=== PATIENT | female | born 1970 | race Two or more races ===

== ENCOUNTER 2019-10-19 13:45 | Outpatient (CLI) | payer BC, SELFPAY ==
[2019-10-22 19:54] LABS: FSH 9.4 mIU/mL (***)
== END 2019-10-19 13:46 | disposition home or self-care (01) ==
PROVIDERS: PCP Family Medicine; Visit Provider Obstetrics & Gynecology
DX: N95.1 Menopausal and female climacteric states (principal)
CPT/HCPCS: 36415; 83001

== ENCOUNTER 2020-10-04 08:20 | Outpatient (CLI) | payer BC, SELFPAY ==
[2020-10-04 08:34] LABS: Basophils Percent Auto 0.3 % (0.2-1.2); Eosinophils Absolute Auto 0.2 K/mm3 (0-0.3); Eosinophils Percent Auto 3.5 % (0-4.4); Hematocrit 40.1 % (37.0-47.0); Hemoglobin 13.7 g/dL (12.0-15.0); Immature Granulocyte Absolute 0.02 K/mm3 (0.00-0.031); Immature Granulocyte Percent A 0.3 % (0-0.5); Lymphocytes Absolute Auto 1.63 K/mm3 (0.9-3.2); Lymphocytes Percent Auto 24.1 % (18.3-44.2); Mean Corpuscular HGB Conc 34.2 g/dl (32-36); Mean Corpuscular Hemoglobin 31.1 pg (26-34); Mean Corpuscular Volume 91.1 fl (80-100); Mean Platelet Volume 11.6 fl (7.4-10.4); Monocytes Absolute Auto 0.2 K/mm3 (0.1-0.6); Monocytes Percent Auto 3.2 % (2.6-8.5); Neutrophils Absolute Auto 4.6 K/mm3 (1.3-6.7); Neutrophils Percent Auto 68.6 % (45.5-73.1); Platelet Count Result 178 k/mm3 (150-375); Red Cell Distribution Width 12.8 % (11.5-14.5); White Blood Count 6.8 K/mm3 (4.5-10.0)
[2020-10-04 08:47] LABS: Alanine Aminotransferase 16 U/L (4-35); Alkaline Phosphatase 63 U/L (38-126); Anion Gap 7 mmol/L (8-16); Aspartate Amino Transferase 22 U/L (14-36); Bilirubin,Total 0.4 mg/dL (0.2-1.3); Blood Urea Nitrogen 12 mg/dL (7-17); Calcium 8.8 mg/dL (8.4-10.2); Carbon Dioxide 22 mmol/L (22-30); Chloride 108 mmol/L (98-107); Cholesterol 185 mg/dL (0-200); Estimated Glomerular Filt Rate > 60; Glucose 96 mg/dL (65-105); HDL Direct 70 mg/dL; Potassium 3.8 mmol/L (3.4-5.0); Sodium 137 mmol/L (137-145); Triglycerides 120 mg/dL (<150)
[2020-10-04 08:56] LABS: LDL Cholesterol Direct 76 mg/dL
[2020-10-04 09:48] LABS: Uric Acid 5.3 mg/dL (2.5-7.5)
[2020-10-06 21:44] LABS: Vitamin D 1,25 (OH)2 Total 45 pg/mL (18-72); Vitamin D2 1,25 (OH)2 <8 pg/mL; Vitamin D3 1,25 (OH)2 45 pg/mL
== END 2020-10-04 08:21 | disposition home or self-care (01) ==
PROVIDERS: PCP Family Medicine; Visit Provider Family Medicine
DX: Z13.220 Encounter for screening for lipoid disorders (principal); R53.82 Chronic fatigue, unspecified; I10 Essential (primary) hypertension; M46.1 Sacroiliitis, not elsewhere classified; E55.9 Vitamin D deficiency, unspecified; M12.9 Arthropathy, unspecified
CPT/HCPCS: 36415; 80053; 80061; 82652; 84443; 84550; 85025

== ENCOUNTER 2021-04-06 08:45 | Outpatient (CLI) | payer OTHER, SELFPAY ==
[2021-04-06 09:10] LABS: Basophils Percent Auto 0.4 % (0.2-1.2); Eosinophils Absolute Auto 0.2 K/mm3 (0-0.3); Eosinophils Percent Auto 3.1 % (0-4.4); Hematocrit 40.4 % (37.0-47.0); Hemoglobin 13.5 g/dL (12.0-15.0); Immature Granulocyte Absolute 0.01 K/mm3 (0.00-0.031); Immature Granulocyte Percent A 0.2 % (0-0.5); Lymphocytes Absolute Auto 1.49 K/mm3 (0.9-3.2); Lymphocytes Percent Auto 28.7 % (18.3-44.2); Mean Corpuscular HGB Conc 33.4 g/dl (32-36); Mean Corpuscular Hemoglobin 30.9 pg (26-34); Mean Corpuscular Volume 92.4 fl (80-100); Monocytes Absolute Auto 0.1 K/mm3 (0.1-0.6); Monocytes Percent Auto 2.7 % (2.6-8.5); Neutrophils Absolute Auto 3.4 K/mm3 (1.3-6.7); Neutrophils Percent Auto 64.9 % (45.5-73.1); Platelet Count Result 187 k/mm3 (150-375); Red Blood Count 4.37 M/mm3 (4.2-5.4); Red Cell Distribution Width 12.7 % (11.5-14.5); White Blood Count 5.2 K/mm3 (4.5-10.0)
[2021-04-06 09:20] LABS: Alanine Aminotransferase 18 U/L (4-35); Albumin Level 4.2 g/dL (3.5-5.1); Alkaline Phosphatase 65 U/L (38-126); Anion Gap 6 mmol/L (8-16); Aspartate Amino Transferase 25 U/L (14-36); Bilirubin,Total 0.6 mg/dL (0.2-1.3); Blood Urea Nitrogen 11 mg/dL (7-17); Carbon Dioxide 24 mmol/L (22-30); Chloride 108 mmol/L (98-107); Estimated Glomerular Filt Rate > 60; Glucose 95 mg/dL (65-110); Potassium 4.1 mmol/L (3.4-5.0); Sodium 138 mmol/L (137-145)
== END 2021-04-06 08:46 | disposition home or self-care (01) ==
LOC: ANHLAB 08:48
PROVIDERS: PCP Family Medicine; Visit Provider Family Medicine
DX: L50.9 Urticaria, unspecified (principal); R53.82 Chronic fatigue, unspecified
CPT/HCPCS: 36415; 80053; 82607; 85025

== ENCOUNTER 2022-01-27 01:48 | Emergency (ER) | payer OTHER, SELFPAY ==
--- NOTE | ~2022-01-27 | XR_ITS ---
EXAMINATION: XR chest 2V 01/27/2022 02:20 INDICATION: Chest pain PROCEDURE: Two-view chest COMPARISON: 03/18/2018 FINDINGS: The lungs are clear. The cardiomediastinal silhouette is within normal limits. There are no pleural effusions. There is no pneumothorax suspected. IMPRESSION: 1: NO ACUTE CARDIOPULMONARY DISEASE. Reviewed, dictated and finalized at location A.
--- NOTE | 2022-01-27 01:52 | ECG_ITS ---
Measurements Intervals [place] Rate: 75 P: 35 CO: 146 QRS: 50 QRSD: 81 T: 41 QT: 353 QTc: 395 Interpretive Statements SINUS RHYTHM POOR R-WAVE PROGRESSION ABNORMAL ECG NO PREVIOUS ECG AVAILABLE FOR COMPARISON Electronically Signed On 01-27-2022 13:45:37 CDT by Geraldo Adams M.D.
[2022-01-27 01:55] VITALS: BP 144/87; PULSE 77; RESP 16; TEMP 36.8; O2SAT 100
--- NOTE | 2022-01-27 02:07 | ED.CHESTPAIN ---
HPI - Chest Pain General Chief Complaint: Chest Pain Stated Complaint: Chest pain, sob Time Seen by Provider: 01/27/22 01:52 Source: patient History of Present Illness HPI narrative: Patient presents with left-sided chest pain. Patient becky has had pain for the past couple days its been constant achy worse with moving her torso or left upper extremity radiates to her left shoulder. Reports mild associated shortness of breath denies any nausea vomiting or diaphoresis. She denies any significant family history denies prior history of blood clots denies any recent hospitalizations or surgeries. Denies any recent fevers, cough, congestion denies any lightheadedness or dizziness Related Data Home Medications Medication Instructions Recorded Confirmed multivitamin (Daily Multi-Vitamin 1 tablet PO DAILY 10/19/19 04/06/21 tablet) Allergies Allergy/AdvReac Type Severity Reaction Status Date / Time shellfish derived Allergy Intermediate rash Verified 04/06/21 07:56 lactose Allergy Mild abdominal Verified 04/06/21 07:56 pain and diarrhea Review of Systems Review of Systems: CONSTITUTIONAL: Denies fever, chills, or sweats. EYES: Denies visual changes, redness, or discharge. ENT: Denies rhinorrhea, congestion, sore throat, or otalgia. CARDIOVASCULAR: Denies palpitations, or edema. RESPIRATORY: Denies cough GASTROINTESTINAL: Denies abdominal pain, nausea, vomiting, or diarrhea. GENITOURINARY: Denies dysuria or hematuria. SKIN: Denies rash or itching. MUSCULOSKELETAL: Denies back pain, joint pain, or myalgia. NEUROLOGIC: Denies headache, numbness, dizziness, or weakness. PSYCHIATRIC: Denies anxiety or depression. All systems reviewed & are unremarkable except as noted in HPI and below PMFSH Past Medical History Medical History Back pain Bilateral sacroiliitis Vaginal delivery x 2 Family History Family History Father Family history of cardiovascular disease Family history of coronary artery disease Cerebrovascular accident Social History Social History Social History: Smoking status: Never smoker Second hand tobacco smoke exposure: No Alcohol intake: current Alcohol use details: Occasionally Substance use: never Substance use type: does not use Gender identity (if verbalized by the patient): Female Sexual Orientation (if Verbalized by the Patient): Straight or Heterosexual Exam Narrative: GENERAL: Well-appearing, well-nourished, and in no acute distress. HEAD: Normocephalic, atraumatic. EYES: PERRLA and EOMI. ENT: Nares clear, no rhinorrhea or epistaxis. Mucous membranes moist. NECK: Supple. No masses. No JVD CHEST: Clear to auscultation. No respiratory distress. No wheezes rales or rhonchi HEART: Regular rate and rhythm. No murmur heard. Normal peripheral pulses. ABDOMEN: Soft, nontender, nondistended, normal active bowel sounds. EXTREMITIES: Normal range of motion. No edema. SKIN: Warm, dry, no rash. NEURO: No focal deficits. Alert and oriented x3. PSYCH: Normal mood and affect. Course Reevaluation(s) Reevaluation #1: Patient resting she declined supportive therapies while in the emergency room. Results reviewed with the patient. Patient is comfortable with outpatient plan. Date: 01/27/22 Time: 03:05 Vital Signs Vital signs: Vital Signs Temperature 36.8 C 01/27/22 01:55 Pulse Rate 77 01/27/22 01:55 Respiratory Rate 16 01/27/22 01:55 Blood Pressure 144/87 H 01/27/22 01:55 Pulse Oximetry 100 01/27/22 01:55 Oxygen Delivery Room Air 01/27/22 01:55 Temperature 36.8 C 01/27/22 01:55 Pulse Rate 74 01/27/22 03:14 Respiratory Rate 20 01/27/22 03:14 Blood Pressure 124/72 01/27/22 03:14 Pulse Oximetry 100 01/27/22 03:14 Oxygen Delivery Room Air 01/27/22 02:5
[2022-01-27 02:08] LABS: Basophils Percent Auto 0.3 % (0.2-1.2); Eosinophils Absolute Auto 0.2 K/mm3 (0-0.3); Hematocrit 39.9 % (37.0-47.0); Hemoglobin 13.3 g/dL (12.0-15.0); Immature Granulocyte Absolute 0.02 K/mm3 (0.00-0.031); Immature Granulocyte Percent A 0.3 % (0-0.5); Lymphocytes Percent Auto 28.4 % (18.3-44.2); Mean Corpuscular HGB Conc 33.3 g/dl (32-36); Mean Corpuscular Hemoglobin 30.2 pg (26-34); Mean Corpuscular Volume 90.5 fl (80-100); Mean Platelet Volume 11.7 fl (7.4-10.4); Monocytes Absolute Auto 0.3 K/mm3 (0.1-0.6); Neutrophils Absolute Auto 3.7 K/mm3 (1.3-6.7); Platelet Count Result 193 k/mm3 (150-375); Red Blood Count 4.41 M/mm3 (4.2-5.4); Red Cell Distribution Width 12.8 % (11.5-14.5)
[2022-01-27 02:18] LABS: INR 0.9; Prothrombin Time 12.2 Seconds (11.1-14.7)
[2022-01-27 02:19] LABS: Partial Thromboplastin Time 30.4 SECONDS (22.3-36.8)
[2022-01-27 02:31] VITALS: BP 116/71; PULSE 67; RESP 20; O2SAT 99
[2022-01-27 02:32] LABS: Alanine Aminotransferase 43 U/L (6-35); Albumin Level 4.2 g/dL (3.5-5.1); Alkaline Phosphatase 95 U/L (38-126); Anion Gap 6 mmol/L (8-16); Aspartate Amino Transferase 77 U/L (14-36); Bilirubin,Total < 0.1 mg/dL (0.2-1.3); Blood Urea Nitrogen 16 mg/dL (7-17); Calcium 8.7 mg/dL (8.4-10.2); Carbon Dioxide 27 mmol/L (22-30); Chloride 106 mmol/L (98-107); Estimated CRCL calculation 62 ml/min; Estimated Glomerular Filt Rate > 60; Glucose 106 mg/dL (65-110); Lipase 120 U/L (23-300); Potassium 3.9 mmol/L (3.4-5.0); Sodium 139 mmol/L (137-145)
[2022-01-27 02:45] LABS: Troponin I < 0.012 ng/mL (0.000-0.034)
[2022-01-27 02:46] VITALS: BP 113/77; PULSE 75; RESP 22; O2SAT 100
[2022-01-27 02:56] VITALS: O2SAT 98
[2022-01-27 03:14] VITALS: BP 124/72; PULSE 74; RESP 20; O2SAT 100
== END 2022-01-27 03:15 | disposition home or self-care (01) ==
PROVIDERS: Emergency Provider Emergency Medicine; PCP Family Medicine
DX: R07.89 Other chest pain (principal); R94.31 Abnormal electrocardiogram [ECG] [EKG]
CPT/HCPCS: 36415; 71046; 80053; 83690; 84484; 85025; 85610; 85730; 93005; 99284

== ENCOUNTER 2022-05-16 11:06 | Outpatient (CLI) | payer OTHER, SELFPAY ==
[2022-05-16 11:46] LABS: Alanine Aminotransferase 26 U/L (6-35); Aspartate Amino Transferase 31 U/L (14-36)
== END 2022-05-16 11:07 | disposition home or self-care (01) ==
PROVIDERS: PCP Family Medicine; Visit Provider Nurse Practitioner Gerontology
DX: R74.8 Abnormal levels of other serum enzymes (principal)
CPT/HCPCS: 36415; 84450; 84460

== ENCOUNTER 2022-07-05 08:27 | Outpatient (CLI) | payer OTHER, SELFPAY ==
--- NOTE | 2022-07-05 08:34 | ECHO_ITS ---
Patient Info Name: Namita Foy Age: 52 years : 1970 Gender: Female Ht: 63 in Wt: 146 lbs BSA: 1.73 m2 HR: 68 bpm Heart Rhythm: Sinus Rhythm Technical Quality: Good Exam Date: 07/05/2022 8:53 AM Exam Location: [facility] Patient Status: Outpatient Admit Date: 07/05/2022 Staff Ordering Physician: Magdy Cordero DO Packaging Tech: Judy Cancino RDCS Attending Provider: Magdy Cordero DO Exam Type: CA echo doppler color flow Study Info Indications R07.89 - Other chest pain Complete two-dimensional, color flow and Doppler transthoracic echocardiogram is performed. Summary 1. Complete two-dimensional, color flow and Doppler transthoracic echocardiogram is performed. 2. Left ventricular chamber dimension is normal. 3. Left ventricular systolic function is normal, estimated at 60-65%. 4. The left ventricular diastolic function is normal. 5. E/e' 7 is not elevated. 6. There is trace tricuspid valve regurgitation. 7. No pulmonary hypertension, estimated pulmonary arterial systolic pressure is 25 mmHg. Left Ventricle E/e' 7 is not elevated. Left ventricular chamber dimension is normal. Left ventricular systolic function is normal, estimated at 60-65%. The left ventricular diastolic function is normal. Right Ventricle Right ventricular chamber dimension is normal. Right ventricular systolic function is normal. Left Atria Left atrial chamber dimension is normal. Right Atria Right atrial chamber dimension is normal. Aortic Valve The aortic valve is trileaflet. There is no aortic valve stenosis. There is no aortic valve regurgitation. Pulmonic Valve There is no pulmonic regurgitation. Mitral Valve There is no mitral valve stenosis. There is no mitral valve regurgitation. Tricuspid Valve There is trace tricuspid valve regurgitation. No pulmonary hypertension, estimated pulmonary arterial systolic pressure is 25 mmHg. Pericardium/Pleural There is no pericardial effusion. Inferior Vena Cava Normal inferior vena cava with >50% collapse upon inspiration consistent with normal right atrial pressure, 5 mmHg. Aorta The aortic root size at the sinus of Valsalva is normal. Left Ventricular Outflow Tract Name Value Normal LVOT 2D LVOT Diameter 1.8 cm LVOT Doppler LVOT Peak Gradient 4 mmHg LVOT Mean Gradient 2 mmHg LVOT VTI 23 cm LVOT VTI/AV VTI Ratio 0.7 LVOT Stroke Volume 60 ml LVOT CO 3.6 l/min LVOT CI 2.1 l/min/m2 Pulmonic Valve Name Value Normal RVOT Doppler RVOT Peak Gradient 2 mmHg PV Doppler
--- NOTE | 2022-07-05 08:34 | EST_ITS ---
Patient Info Name: Namita Foy Age: 52 years : 1970 Gender: Female Ht: 63 in Wt: 147 lbs BSA: 1.74 m2 Exam Date: 07/05/2022 9:56 AM Exam Location: [facility] Stress Patient Status: Outpatient Admit Date: 07/05/2022 Staff Ordering Physician: Magdy Cordero DO Attending Provider: Magdy Cordero DO Exercise Technologist: Bianka Dean RDCS Exercise Physician: Magdy Cordero DO Exam Type: CA stress test treadmill Study Info A treadmill exercise stress test was performed. Summary 1. 1. Negative Alexandro exercise stress test for ischemic ST changes by ECG criteria. 2. 2. Good functional capacity, achieving 10 METs of workload. 3. 3. Appropriate HR response to exercise. 4. 4. Appropriate HR recovery at 1 minute post exercise. 5. 5. No imaging with stress testing. 6. 6. Patient informed of the above results. Protocol: Alexandro Stress ECG Details Stage: REST Duration (min): 0 min : 40 sec Speed (mph): 0.0 Grade (%): 0 HR (bpm): 58 SBP (mmHg): 112 DBP (mmHg): 74 METS: --- Stage: REST Duration (min): 5 min : 30 sec Speed (mph): 0.0 Grade (%): 0 HR (bpm): 72 SBP (mmHg): 112 DBP (mmHg): 74 METS: --- Stage: STAGE 1 Duration (min): 1 min : 0 sec Speed (mph): 1.7 Grade (%): 10 HR (bpm): 86 SBP (mmHg): 112 DBP (mmHg): 74 METS: --- Stage: STAGE 1 Duration (min): 2 min : 0 sec Speed (mph): 1.7 Grade (%): 10 HR (bpm): 92 SBP (mmHg): 112 DBP (mmHg): 74 METS: --- Stage: STAGE 1 Duration (min): 3 min : 0 sec Speed (mph): 1.7 Grade (%): 10 HR (bpm): 98 SBP (mmHg): 109 DBP (mmHg): 62 METS: --- Stage: STAGE 2 Duration (min): 1 min : 0 sec Speed (mph): 2.5 Grade (%): 12 HR (bpm): 113 SBP (mmHg): 109 DBP (mmHg): 62 METS: --- Stage: STAGE 2 Duration (min): 2 min : 0 sec Speed (mph): 2.5 Grade (%): 12 HR (bpm): 114 SBP (mmHg): 119 DBP (mmHg): 55 METS: --- Stage: STAGE 2 Duration (min): 3 min : 0 sec Speed (mph): 2.5 Grade (%): 12 HR (bpm): 114 SBP (mmHg): 119 DBP (mmHg): 55 METS: --- Stage: STAGE 3 Duration (min): 1 min : 0 sec Speed (mph): 3.4 Grade (%): 14 HR (bpm): 124 SBP (mmHg): 119 DBP (mmHg): 55 METS: --- Stage: STAGE 3 Duration (min): 2 min : 0 sec Speed (mph): 3.4 Grade (%): 14 HR (bpm): 140 SBP (mmHg): 142 DBP (mmHg): 67 METS: --- Stage: STAGE 3 Duration (min): 3 min : 0 sec Speed (mph): 3.4 Grade (%): 14 HR (bpm): 145 SBP (mmHg): 151 DBP (mmHg): 77 METS: --- Stage: STAGE 4 Duration (min): 0 min : 2 sec Speed (mph): 4.2 Grade (%): 16 HR (bpm): 146 SBP (mmHg): 151 DBP (mmHg): 77 METS: --- Stage: RECOVERY Duration (min): 0 min : 57 sec Speed (mph): 0.0 Grade (%): 0 HR (bpm): 11
== END 2022-07-05 08:28 | disposition home or self-care (01) ==
PROVIDERS: PCP Family Medicine; Visit Provider Internal Medicine Cardiovascular Disease
DX: R07.89 Other chest pain (principal); R06.09 Other forms of dyspnea
CPT/HCPCS: 93017; 93306

== ENCOUNTER 2022-10-16 08:02 | Outpatient (CLI) | payer OTHER, SELFPAY ==
--- NOTE | 2022-11-06 12:19 | WPDHOMESLEEP ---
Sleep Study - Home Unattended Date of Study: 10/16/22 Ordering Provider: Magdy Cordero DO Interpreting Provider: Brandy Chamberlain DO Home Sleep Study Type: Watch PAT Height: 1.6 m Weight: 64.864 kg Body Mass Index: 25.3 Neck Circumference (inches): 13 [place]: 9 Reason for Sleep Study Snoring, nocturnal gasping Sleep History The patient is a 52-year-old female with bilateral sacroiliitis that had a sleep study ordered by her data programmer for evaluation of sleep apnea. The patient occasionally awakens from sleep short of breath. She rarely awakens at night with heartburn, belching or cough. She occasionally snores but it is never loud enough that others complain. She frequently has trouble sleeping when she has a cold. She occasionally wakes up gasping for air throughout the night. She occasionally sweats excessively at night. She frequently has heart palpitations or irregular heartbeats during the night. He rarely falls asleep during the day but never while driving. She rarely experiences loss of muscle tone when extremely emotional. She occasionally has trouble at school or work due to sleepiness. She occasionally feels unable to move and waking up or falling asleep. She frequently experiences vivid dreamlike scenes upon awakening or falling asleep. She denies feeling afraid of going to sleep. She occasionally has nightmares and occasionally remembers her dreams. She frequently has thoughts racing through her mind. She rarely feels sad or depressed. She occasionally has anxiety. She occasionally has muscular tension. She occasionally notices parts of her body jerk. She denies kicking during the night. She rarely experiences crawling and aching feelings in her legs and occasionally has leg pain during the night. She rarely grinds her teeth during sleep but never awakens with morning jaw pain. She is rarely bothered by pain during the day and rarely awakened by pain during the night. She frequently wakes up feeling stiff in the morning. She occasionally wakes up with sore or achy muscles. She frequently wakes up with pain in neck, spine or other joints. She goes to bed at 9:30 p.m. on weekdays and at 11:00 p.m. on weekends. It takes her 30-60 minutes to fall asleep. She wakes up 2-3 times throughout the night for unknown reasons. He can take her 3-4 hours to fall back asleep. She wakes up at 5:30 a.m. on weekdays and at 2:00 a.m. on the weekends. She will stay in bed for 10-30 minutes after waking up in the morning. She does not consume any caffeinated beverages within 2 hours of bedtime. She denies reading before falling asleep. She denies taking naps in the afternoon or the evening. He drinks 1-2 cups of caffeinated beverage per day. She drinks alcohol socially. He denies tobacco use. [facility] Past Medical History Medical History Back pain Bilateral sacroiliitis Vaginal delivery x 2 Family History Family History Father Family history of cardiovascular disease Family history of coronary artery disease Cerebrovascular accident Social History Social History Social History: Smoking status: Never smoker Second hand tobacco smoke exposure: No Alcohol intake: current Alcohol use details: Occasionally Substance use: never Substance use type: does not use Living arrangements: with family Occupation/Education: occupation Gender identity (if verbalized by the patient): Female Sexual Orientation (if Verbalized by the Patient): Straight or Heterosexual Medications Home Medications Medication Instructions Recorded Confirmed Type amitriptyline 25 mg tablet 25 mg PO ONCE #30 tabs 01/30/22 09/21/22 Rx pantoprazole 40 mg tablet,delayed 40 mg PO QAM #30 tabs 01/30/22 09/21/22 Rx release Sleep Pr
[2022-11-06 12:32] VITALS: BMI 25.3
== END 2022-10-18 12:00 | disposition home or self-care (01) ==
LOC: ANHCSM 08:03
PROVIDERS: PCP Family Medicine; Visit Provider Internal Medicine Cardiovascular Disease
DX: G47.9 Sleep disorder, unspecified (principal); G47.10 Hypersomnia, unspecified
CPT/HCPCS: 95800

== ENCOUNTER 2022-12-04 11:28 | Outpatient (CLI) | payer OTHER, SELFPAY ==
[2022-12-04 12:37] LABS: Influenza A QL RT-PCR Negative (Negative); Influenza B QL RT-PCR Negative (Negative); RSV RNA, RT-PCR Negative (Negative); SARS-CoV-2 RNA PCR Negative
== END 2022-12-04 11:29 | disposition home or self-care (01) ==
LOC: ANHLAB 11:30
PROVIDERS: PCP Family Medicine; Visit Provider Nurse Practitioner Gerontology
DX: Z20.822 Contact with and (suspected) exposure to COVID-19 (principal)
CPT/HCPCS: 87637

== ENCOUNTER 2022-12-07 13:25 | Outpatient (CLI) | payer OTHER, SELFPAY ==
--- NOTE | ~2022-12-07 | XR_ITS ---
EXAMINATION: XR chest 2V 12/07/2022 13:48 INDICATION: Cough PROCEDURE: 2 view chest COMPARISON: 01/27/2022 FINDINGS: The lungs are clear. The cardiomediastinal silhouette is within normal limits. There are no pleural effusions. There is no pneumothorax suspected. IMPRESSION: 1: NO ACUTE CARDIOPULMONARY DISEASE. Reviewed, dictated and finalized at location A.
== END 2022-12-07 13:26 | disposition home or self-care (01) ==
PROVIDERS: PCP Family Medicine; Visit Provider Nurse Practitioner Gerontology
DX: R05.9 Cough, unspecified (principal)
CPT/HCPCS: 71046

== ENCOUNTER 2022-12-11 16:52 | Outpatient (CLI) | payer OTHER, SELFPAY ==
[2022-12-11 17:29] LABS: Basophils Percent Auto 0.5 % (0.2-1.2); Eosinophils Absolute Auto 0.2 K/mm3 (0-0.3); Eosinophils Percent Auto 2.3 % (0-4.4); Hematocrit 36.8 % (37.0-47.0); Hemoglobin 11.9 g/dL (12.0-15.0); Immature Granulocyte Absolute 0.02 K/mm3 (0.00-0.031); Immature Granulocyte Percent A 0.3 % (0-0.5); Lymphocytes Absolute Auto 1.42 K/mm3 (0.9-3.2); Lymphocytes Percent Auto 21.8 % (18.3-44.2); Mean Corpuscular HGB Conc 32.3 g/dl (32-36); Mean Corpuscular Hemoglobin 29.7 pg (26-34); Mean Corpuscular Volume 91.8 fl (80-100); Mean Platelet Volume 11.1 fl (7.4-10.4); Monocytes Absolute Auto 0.3 K/mm3 (0.1-0.6); Monocytes Percent Auto 4.3 % (2.6-8.5); Neutrophils Absolute Auto 4.6 K/mm3 (1.3-6.7); Neutrophils Percent Auto 70.8 % (45.5-73.1); Platelet Count Result 250 k/mm3 (150-375); Red Blood Count 4.01 M/mm3 (4.2-5.4); Red Cell Distribution Width 12.6 % (11.5-14.5); White Blood Count 6.5 K/mm3 (4.5-10.0)
[2022-12-11 17:50] LABS: Alanine Aminotransferase 101 U/L (6-35); Albumin Level 4.1 g/dL (3.5-5.1); Alkaline Phosphatase 174 U/L (38-126); Anion Gap 10 mmol/L (8-16); Aspartate Amino Transferase 66 U/L (14-36); Bilirubin,Total 0.5 mg/dL (0.2-1.3); Blood Urea Nitrogen 12 mg/dL (7-17); Calcium 8.7 mg/dL (8.4-10.2); Carbon Dioxide 26 mmol/L (22-30); Chloride 103 mmol/L (98-107); Estimated Glomerular Filt Rate > 60; Glucose 103 mg/dL (65-110); Sodium 139 mmol/L (137-145)
[2022-12-11 17:52] LABS: Appearance Urine Turbid (Clear); Bilirubin Urine Negative (Negative); Blood Urine Negative (Negative); Color Urine Yellow (Yellow); Glucose Urine UA Negative (Negative); Ketones Urine Negative (Negative); Leukocyte Esterase Ur 2+ LEU/UL (Negative); Need Manual Microscopic Reviewed; Nitrate Urine Negative (Negative); Non Pathogenic Casts 0-2; Protein Urine 1+ mg/dL (Negative); Squamous Epithelial Cell Urine Few /hpf (Few); WBC Urine 21-50 /hpf; pH Urine 8.5 (5.0-9.0)
[2022-12-11 17:56] LABS: Amorphous Sediment Urine Present; Bacteria Urine 2+ /hpf
[2022-12-11 17:58] LABS: Add Urine Microscopic? YES
[2022-12-11 18:06] LABS: Erythrocyte Sedimentation Rate 65 mm/hr (0-20)
[2022-12-11 18:21] LABS: Thyroid Stimulating Hormone < 0.015 uIU/mL (0.465-4.680)
[2022-12-11 19:36] LABS: Free T4 Free Thyroxine 2.73 ng/mL (0.78-2.19)
[2022-12-16 03:52] LABS: Thyroid Peroxidase Antibodies 1 IU/mL (<9)
== END 2022-12-11 16:53 | disposition home or self-care (01) ==
PROVIDERS: PCP Family Medicine; Visit Provider Family Medicine
DX: M79.10 Myalgia, unspecified site (principal); I10 Essential (primary) hypertension; E04.9 Nontoxic goiter, unspecified; R50.9 Fever, unspecified
CPT/HCPCS: 36415; 80053; 81001; 84439; 84443; 85025; 85652; 86376; 87086; 87088

== ENCOUNTER → 2022-12-25 09:56 | Outpatient (CLI) | payer OTHER, SELFPAY ==
--- NOTE | ~2022-12-25 | US_ITS ---
US abdomen complete EXAMINATION: US Abdomen Complete INDICATION: Elevated liver enzymes. PROCEDURE: Realtime High Resolution abdomen ultrasound. COMPARISON: No prior studies for comparison FINDINGS: Gallbladder within normal limits. No gallstones, pericholecystic fluid, gallbladder wall t hickening or biliary dilatation. Common bile duct measures 4 mm. Liver echotexture is relatively homogeneous. In the right hepatic lobe there is a focal 8 mm area of increased echogenicity which may represent calcification or a benign hemangioma in the absence of kno wn malignancy.. Pancreas within normal limits. Pancreatic tail is obscured by bowel gas. Spleen is unremarkeable. Renal echotexture is within normal limits bilaterally without hydronephrosis, contour deforming mass or renal stone. Right kidney measures 10.1 cm. Left kidney measures 12 cm. Visualized aspects of the aorta and IVC are within normal limits. Portal vein is patent. No sonograph ic Trejo's sign indicated by the technologist. IMPRESSION: 1: Focal hyperechoic lesion of the right hepatic lobe measuring 8 mm. Considerations include a small hyperechoic mass such as hemangioma in the absence of known malignancy or focal calcification. Reviewed, dictated and finalized at location L. IMPRESSION: 1: Focal hyperechoic lesion of the right hepatic lobe measuring 8 mm. Considera tions include a small hyperechoic mass such as hemangioma in the absence of kno wn malignancy or focal calcification.
--- NOTE | ~2022-12-25 | US_ITS ---
Thyroid ultrasound. Clinical History: Nontoxic goiter Findings: Real-time sonography of the thyroid gland was performed. The right lobe measures 3.8 x 1.6 x 1.2 cm. The left lobe measures 3.6 x 1.8 x 1.8 cm. The isthmus is 5 mm in AP diameter. Thyroid parenchyma is diffusely heterogeneous. There is a 3 mm hypoechoic, probable cystic nodule at the left lower pole. There is a 4 mm cystic nodule in the right thyroid lobe near the junction with t he isthmus. Impression: Heterogeneous thyroid parenchyma with 2 tiny cystic nodules, with benign appearance. Reviewed, dictated and finalized at location M. Impression: Heterogeneous thyroid parenchyma with 2 tiny cystic nodules, with benign appea hussein.
== END ==
PROVIDERS: PCP Internal Medicine; Visit Provider Family Medicine
DX: E04.2 Nontoxic multinodular goiter (principal); R74.01 Elevation of levels of liver transaminase levels; K76.9 Liver disease, unspecified
CPT/HCPCS: 76536; 76700

== ENCOUNTER 2023-01-02 11:28 | Outpatient (CLI) | payer OTHER, SELFPAY ==
[2023-01-02 12:06] LABS: Basophils Percent Auto 0.2 % (0.2-1.2); Eosinophils Absolute Auto 0.1 K/mm3 (0-0.3); Eosinophils Percent Auto 2.4 % (0-4.4); Hematocrit 37.7 % (37.0-47.0); Hemoglobin 12.1 g/dL (12.0-15.0); Immature Granulocyte Absolute 0.02 K/mm3 (0.00-0.031); Immature Granulocyte Percent A 0.4 % (0-0.5); Lymphocytes Absolute Auto 1.44 K/mm3 (0.9-3.2); Lymphocytes Percent Auto 29.3 % (18.3-44.2); Mean Corpuscular HGB Conc 32.1 g/dl (32-36); Mean Corpuscular Hemoglobin 27.8 pg (26-34); Mean Corpuscular Volume 86.7 fl (80-100); Mean Platelet Volume 11.9 fl (7.4-10.4); Monocytes Absolute Auto 0.1 K/mm3 (0.1-0.6); Monocytes Percent Auto 2.6 % (2.6-8.5); Neutrophils Absolute Auto 3.2 K/mm3 (1.3-6.7); Neutrophils Percent Auto 65.1 % (45.5-73.1); Platelet Count Result 225 k/mm3 (150-375); Red Blood Count 4.35 M/mm3 (4.2-5.4); Red Cell Distribution Width 12.5 % (11.5-14.5); White Blood Count 4.9 K/mm3 (4.5-10.0)
[2023-01-02 12:11] LABS: Sodium 137 mmol/L (137-145)
[2023-01-02 12:12] LABS: Alanine Aminotransferase 26 U/L (6-35); Albumin Level 3.9 g/dL (3.5-5.1); Alkaline Phosphatase 130 U/L (38-126); Anion Gap 7 mmol/L (8-16); Aspartate Amino Transferase 34 U/L (14-36); Bilirubin,Total 0.4 mg/dL (0.2-1.3); Blood Urea Nitrogen 12 mg/dL (7-17); Calcium 8.8 mg/dL (8.4-10.2); Carbon Dioxide 28 mmol/L (22-30); Chloride 102 mmol/L (98-107); Estimated Glomerular Filt Rate > 60; Glucose 92 mg/dL (65-110); Potassium 3.7 mmol/L (3.4-5.0)
[2023-01-02 12:25] LABS: Iron 38 ug/dL (37-170)
[2023-01-02 12:30] LABS: Percent Iron Saturation 11 % (20-50)
[2023-01-02 12:53] LABS: Hepatitis B Surface Antigen Negative (Negative)
[2023-01-02 12:59] LABS: HAV RESULT Negative (Negative); Hepatitis B Core IgM Result Negative (Negative)
[2023-01-02 13:11] LABS: Hepatitis C Virus Antibody Negative (Negative)
== END 2023-01-02 11:29 | disposition home or self-care (01) ==
PROVIDERS: PCP Family Medicine; Visit Provider Internal Medicine
DX: D64.9 Anemia, unspecified (principal)
CPT/HCPCS: 36415; 80053; 80074; 82607; 82728; 82746; 83540; 83550; 85025; 86038; 86039

== ENCOUNTER 2023-01-06 09:12 | Outpatient (CLI) | payer OTHER, SELFPAY ==
--- NOTE | ~2023-01-06 | MR_ITS ---
EXAMINATION: MR abdomen wo/w con DATE: 01/06/2023 10:18 INDICATION: Liver disease, unspecified. TECHNIQUE: Magnetic resonance imaging (MRI) of the abdomen was performed without and with 13 mL Multi Jv intravenous contrast. COMPARISON: Abdomen ultrasound 12/25/2022 FINDINGS: There is a 3 mm cyst in right hepatic lobe. The gallbladder, spleen, pancreas, adrenal glands, and ki dneys are normal. There are no dilated loops of bowel. There are no pathologically enlarged lymph nod es. There is no free intraperitoneal fluid. IMPRESSION: 1. No correlate for the subcentimeter liver finding described by ultrasound, likely benign. Reviewed, dictated and finalized at location A. IMPRESSION: 1. No correlate for the subcentimeter liver finding described by ultrasound, eduardo woo benign.
== END 2023-01-06 09:13 | disposition home or self-care (01) ==
PROVIDERS: PCP Family Medicine; Visit Provider Internal Medicine
DX: K76.9 Liver disease, unspecified (principal)
CPT/HCPCS: 74183; A9577

== ENCOUNTER 2023-01-18 00:13 | Day surgery (SDC) | payer OTHER, SELFPAY ==
[2023-01-02 12:15] VITALS: BMI 25.4
[2023-01-18 07:04] VITALS: BP 108/75; PULSE 72; RESP 16; TEMP 36.3; O2SAT 100
[2023-01-18] MEDS: LACTATED RINGERS 1,000 ML 150 ML IV CONT (07:13)
--- NOTE | 2023-01-18 07:46 | P.PNAN_ITS ---
Anes - Initial Pre Proc Eval Procedure: Operation Date: 01/18/23 08:00 Proposed Procedures p Esophagogastroduodenoscopy & Colonoscopy - Noe Dang MD Date/Time: 01/18/23 07:46 Surgeon: Noe Dang MD Pre Op Diagnosis: Anemia Patient Data Age: 52 Gender: F Height: 1.6 m Weight: 64.1 kg Last Vital Signs Temp 97.3 F L 01/18/23 07:04 Pulse 72 01/18/23 07:04 Resp 16 01/18/23 07:04 BP 108/75 01/18/23 07:04 Pulse Ox 100 01/18/23 07:04 O2 Del Method Room Air 01/18/23 07:04 Allergies Allergy/AdvReac Type Severity Reaction Status Date / Time shellfish derived Allergy Intermediate rash Verified 01/18/23 07:03 lactose Allergy Mild abdominal Verified 01/18/23 07:03 pain and diarrhea Home Medications Medication Instructions Recorded Confirmed Type acetaminophen 325 mg capsule 325 mg PO Q6H PRN Pain (Scale 12/21/22 01/18/23 History (Tylenol) Score 1-3) Patient hx anesthesia problems: none Family hx anesthesia problems: none Results Review: All pre-operative results and documents have been reviewed as part of the pre- operative evaluation. [facility] Past Medical History Medical History Back pain Bilateral sacroiliitis Vaginal delivery x 2 Family History Family History Father Family history of cardiovascular disease Family history of coronary artery disease Cerebrovascular accident Social History Social History (Updated 12/28/22 @ 14:31 by Caroline Bob) Social History: Smoking status: Never smoker Second hand tobacco smoke exposure: No Alcohol intake: current Drinks per week: 1 Alcohol use details: Occasionally Substance use: never Substance use type: does not use Lack of Transportation: No Lack of Food: Never True Current Housing: I Have Housing Concerned About Future Housing: No Difficulty Paying Gas/Electric Bills: No Difficulty Paying for Meds: No Currently Unemployed: No Education: Decline to Answer Difficulty w/ Childcare or Family Care: No Living arrangements: with family Occupation/Education: occupation Gender identity (if verbalized by the patient): Female Sexual Orientation (if Verbalized by the Patient): Straight or Heterosexual Spiritual care concerns: No Anes - Eval Final PreProcedure Day of Procedure 01/18/23 07:46 Patient weight: normal Heart: regular rate and rhythm Lungs: clear to auscultation Airway: Mallampati scale class II Neurological: alert and oriented Last oral intake: >/= 8 hours ASA classification: II Emergent: no Anesthetic plan: proceed Anesthesia type and monitoring: general GIVS and standard monitoring Results Review: All pre-operative results and documents have been reviewed as part of the pre- operative evaluation. Informed Consent: The patient's anesthetic plan and its attendant risks and benefits were discussed with the patient/family/POA. Questions were solicited and answers provided to the satisfaction of the patient/family/POA.
--- NOTE | 2023-01-18 07:48 | PM.HPGS ---
History of Present Illness History of Present Illness Consent: Risks, benefits, and alternatives have been discussed and questions answered. Patient agrees to proceed with procedure. Chief complaint: Anemia Narrative: Namita Foy is a 52 year old female Referred by primary care service for both colonoscopy an EGD. Patient denies any bleeding. She was told she had a mild anemia. She also denies any bruising or nose bleeds or other bleeding. Review of records reveal mild normochromic normocytic anemia in November that is returned to normal subsequently. During that interval of time she had mild elevated liver function tests is also returned to normal. No stool Hemoccult was performed. Patient referred for colonoscopy and EGD. Patient denies abdominal pain. Neoplasia screening colonoscopy has not been performed. She had brief constipation the improves on eating fruits. Review of Systems Review of Systems: Review of systems noncontributory. [facility] Past Medical History Medical History Back pain Bilateral sacroiliitis Vaginal delivery x 2 Family History Family History Father Family history of cardiovascular disease Family history of coronary artery disease Cerebrovascular accident Social History Social History (Updated 12/28/22 @ 14:31 by Caroline Bob) Social History: Smoking status: Never smoker Second hand tobacco smoke exposure: No Alcohol intake: current Drinks per week: 1 Alcohol use details: Occasionally Substance use: never Substance use type: does not use Lack of Transportation: No Lack of Food: Never True Current Housing: I Have Housing Concerned About Future Housing: No Difficulty Paying Gas/Electric Bills: No Difficulty Paying for Meds: No Currently Unemployed: No Education: Decline to Answer Difficulty w/ Childcare or Family Care: No Living arrangements: with family Occupation/Education: occupation Gender identity (if verbalized by the patient): Female Sexual Orientation (if Verbalized by the Patient): Straight or Heterosexual Spiritual care concerns: No Meds Home Medications and Allergies Home Medications Medication Instructions Recorded Confirmed Type acetaminophen 325 mg capsule 325 mg PO Q6H PRN Pain (Scale 12/21/22 01/18/23 History (Tylenol) Score 1-3) Allergies Allergy/AdvReac Type Severity Reaction Status Date / Time shellfish derived Allergy Intermediate rash Verified 01/18/23 07:03 lactose Allergy Mild abdominal Verified 01/18/23 07:03 pain and diarrhea Vital Signs Vital Signs - 24 hr 01/18/23 07:04 Temperature 97.3 F L Pulse Rate 72 Respiratory Rate 16 Blood Pressure 108/75 Pulse Oximetry 100 Oxygen Delivery Room Air Exam Narrative: Physical exam reveals patient be alert. Vital signs stable. HEENT exam is unremarkable. Patient is anicteric. Lungs are clear to auscultation and percussion. Heart is without murmur or extra sounds. Abdomen bowel sounds are present soft nontender with no organomegaly. Digital external rectal exam normal. Assessment and Plan Assessment and plan (1) Anemia: Code(s): D64.9 - Anemia, unspecified Status: Acute Assessment and Plan: Patient is reported to have been anemic. Review records reveals she had a very mild normochromic normocytic anemia 1 month ago. This has subsequently resolved. Patient gives no indication for bleeding in the colon or elsewhere. Colonoscopy an EGD are requested will be performed. Colonoscopy would be beneficial for screening purposes at this time. Should there be concern over GI blood loss stool Hemoccult may be beneficial. further recommendations may be given after endoscopy.
--- NOTE | 2023-01-18 08:28 | SUR.OPER ---
procedure times: egd: 804 colon: 811
[2023-01-18 08:32] VITALS: BP 96/60; PULSE 62; RESP 18; O2SAT 99
[2023-01-18 08:42] VITALS: BP 105/70; PULSE 60; RESP 20; O2SAT 100
[2023-01-18 08:52] VITALS: BP 114/68; PULSE 68; RESP 18; O2SAT 100
== END 2023-01-18 09:03 | disposition home or self-care (01) ==
PROVIDERS: PCP Family Medicine; Visit Provider Internal Medicine Gastroenterology
PROC: 0DJ08ZZ Inspection of Upper Intestinal Tract, Via Natural or Artificial Opening Endoscopic (ICD-10-PCS; CPT 43235; principal; 2023-01-18 08:00)
DX: Z12.11 Encounter for screening for malignant neoplasm of colon (principal)
CPT/HCPCS: 45378; 43235; J2704; J7120

== ENCOUNTER 2023-02-05 08:25 | Outpatient (CLI) | payer OTHER, SELFPAY ==
[2023-02-05 17:11] LABS: Alanine Aminotransferase 34 U/L (6-35); Albumin Level 4.2 g/dL (3.5-5.1); Alkaline Phosphatase 106 U/L (38-126); Anion Gap 4 mmol/L (8-16); Aspartate Amino Transferase 89 U/L (14-36); Bilirubin,Total 0.3 mg/dL (0.2-1.3); Blood Urea Nitrogen 10 mg/dL (7-17); Calcium 8.4 mg/dL (8.4-10.2); Carbon Dioxide 27 mmol/L (22-30); Chloride 107 mmol/L (98-107); Estimated Glomerular Filt Rate > 60; Glucose 82 mg/dL (65-110); Potassium 3.8 mmol/L (3.4-5.0); Sodium 138 mmol/L (137-145)
[2023-02-05 17:18] LABS: Transferrin 244 mg/dL (206-381)
[2023-02-05 18:33] LABS: Free T4 Free Thyroxine 0.42 ng/mL (0.78-2.19); Vitamin D 25 Hydroxy 20.7 ng/mL
[2023-02-05 19:48] LABS: Iron 67 ug/dL (37-170); Percent Iron Saturation 17 % (20-50)
[2023-02-10 05:26] LABS: FSH 120.6 mIU/mL (***); Triiodothyronine T3 Free 2.3 pg/mL (2.3-4.2)
== END 2023-02-05 08:26 | disposition home or self-care (01) ==
LOC: ANHWCLAB 08:26
PROVIDERS: PCP Family Medicine; Visit Provider Internal Medicine Endocrinology, Diabetes & Metabolism
DX: E61.1 Iron deficiency (principal); E53.8 Deficiency of other specified B group vitamins; N95.1 Menopausal and female climacteric states; R79.89 Other specified abnormal findings of blood chemistry; E04.9 Nontoxic goiter, unspecified; E07.9 Disorder of thyroid, unspecified; R74.8 Abnormal levels of other serum enzymes
CPT/HCPCS: 36415; 80053; 82306; 82607; 83001; 83540; 83550; 84439; 84443; 84466; 84481

== ENCOUNTER 2023-02-08 09:06 | Outpatient (CLI) | payer OTHER, SELFPAY ==
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
[2023-03-04 19:44] VITALS: BMI 25.7
== END 2023-02-09 07:34 | disposition home or self-care (01) ==
LOC: ANHCSM 09:06
PROVIDERS: PCP Family Medicine; Visit Provider Physician Assistant
DX: G47.9 Sleep disorder, unspecified (principal); G47.10 Hypersomnia, unspecified
CPT/HCPCS: 95810

== ENCOUNTER → 2023-03-15 10:44 | Outpatient (CLI) | payer OTHER, SELFPAY ==
--- NOTE | ~2023-03-15 | US_ITS ---
EXAMINATION: US pelvic complete w TV DATE: 03/15/2023 11:10 INDICATION: Personal history of female diseases. Comparison:No prior studies for comparison. TECHNIQUE: Multiple transabdominal and endovaginal sonographic images of the pelvis performed. FINDINGS: The uterus measures 6.4 x 3.7 x 3.9 cm. The endometrial complex measures 4 mm. The right ovary measures 1.6 x 1.9 x 0.8 cm and the left ovary measures 1.4 x 1.5 x 0.9 cm. There ar e small follicles in each ovary. Normal doppler signal in both ovaries. There is no free fluid in the pelvis. There are no abnormal masses seen on either side. IMPRESSION: 1. Unremarkable pelvic ultrasound. Reviewed, dictated and finalized at location A.
== END ==
PROVIDERS: PCP Internal Medicine; Visit Provider Obstetrics & Gynecology
DX: Z87.42 Personal history of other diseases of the female genital tract (principal)
CPT/HCPCS: 76830; 76856

== ENCOUNTER 2023-03-15 11:22 | Outpatient (CLI) | payer OTHER, SELFPAY ==
[2023-03-15 12:13] LABS: Free T4 Free Thyroxine 1.66 ng/mL (0.78-2.19)
[2023-03-15 12:28] LABS: Thyroid Stimulating Hormone 0.106 uIU/mL (0.465-4.680)
[2023-03-19 05:30] LABS: Thyroid Peroxidase Antibodies <1 IU/mL (<9)
== END 2023-03-15 11:23 | disposition home or self-care (01) ==
PROVIDERS: PCP Internal Medicine; Visit Provider Internal Medicine Endocrinology, Diabetes & Metabolism
DX: E03.9 Hypothyroidism, unspecified (principal)
CPT/HCPCS: 36415; 84439; 84443; 86376

== ENCOUNTER 2023-04-02 12:55 | Outpatient (CLI) | payer OTHER, SELFPAY ==
[2023-04-02 14:57] LABS: Free T4 Free Thyroxine 1.46 ng/mL (0.78-2.19)
[2023-04-02 15:01] LABS: Thyroid Stimulating Hormone 0.181 uIU/mL (0.465-4.680)
== END 2023-04-02 12:56 | disposition home or self-care (01) ==
LOC: ANHLAB 12:56
PROVIDERS: PCP Internal Medicine; Visit Provider Internal Medicine Endocrinology, Diabetes & Metabolism
DX: E03.9 Hypothyroidism, unspecified (principal)
CPT/HCPCS: 36415; 84439; 84443

== ENCOUNTER 2023-05-07 10:53 | Outpatient (CLI) | payer OTHER, SELFPAY ==
--- NOTE | ~2023-05-07 | XR_ITS ---
EXAMINATION: XR sacroiliac joints min 3V INDICATION: Right-sided sacroiliitis TECHNIQUE: Three views of the sacroiliac joints are obtained. COMPARISON: CT, 03/12/2019 FINDINGS: There is mild sclerosis at the sacroiliac joints. No erosions are identified. There is no f racture. The lumbar spine is unremarkable. IMPRESSION: 1. Mild sclerosis at the sacroiliac joints without acute osseous abnormality. Reviewed, dictated and finalized at location L.
[2023-05-07 11:58] LABS: Alanine Aminotransferase 57 U/L (6-35); Albumin Level 4.6 g/dL (3.5-5.1); Alkaline Phosphatase 103 U/L (38-126); Anion Gap 8 mmol/L (8-16); Aspartate Amino Transferase 51 U/L (14-36); Bilirubin,Total 0.7 mg/dL (0.2-1.3); Blood Urea Nitrogen 15 mg/dL (7-17); Calcium 8.9 mg/dL (8.4-10.2); Carbon Dioxide 25 mmol/L (22-30); Chloride 104 mmol/L (98-107); Estimated Glomerular Filt Rate > 60; Glucose 88 mg/dL (65-110); Potassium 4.2 mmol/L (3.4-5.0); Sodium 137 mmol/L (137-145)
[2023-05-07 12:04] LABS: Transferrin 309 mg/dL (206-381)
[2023-05-07 12:05] LABS: CRP < 0.5 mg/dL (<1.0)
[2023-05-07 12:06] LABS: Complement C3 108 mg/dL (88-165)
[2023-05-07 13:26] LABS: Erythrocyte Sedimentation Rate 12 mm/hr (0-20)
[2023-05-07 13:30] LABS: Basophils Percent Auto 0.6 % (0.2-1.2); Eosinophils Absolute Auto 0.2 K/mm3 (0-0.3); Eosinophils Percent Auto 3.1 % (0-4.4); Hemoglobin 13.5 g/dL (12.0-15.0); Immature Granulocyte Absolute 0.01 K/mm3 (0.00-0.031); Immature Granulocyte Percent A 0.2 % (0-0.5); Immature Platelet Fraction Pct 9.2 % (0.9-11.2); Mean Corpuscular HGB Conc 32.9 g/dl (32-36); Mean Corpuscular Hemoglobin 29.9 pg (26-34); Mean Corpuscular Volume 90.9 fl (80-100); Mean Platelet Volume 12.1 fl (7.4-10.4); Monocytes Absolute Auto 0.1 K/mm3 (0.1-0.6); Monocytes Percent Auto 2.5 % (2.6-8.5); Neutrophils Absolute Auto 2.8 K/mm3 (1.3-6.7); Neutrophils Percent Auto 56.6 % (45.5-73.1); Nucleated Red Blood Cells Perc 0.4 % (0.0-0.2); Platelet Count Result 172 k/mm3 (150-375); Red Blood Count 4.51 M/mm3 (4.2-5.4); Red Cell Distribution Width 13.4 % (11.5-14.5); White Blood Count 4.9 K/mm3 (4.5-10.0)
[2023-05-08 12:46] LABS: Vitamin D 25 Hydroxy 53.8 ng/mL
[2023-05-11 04:03] LABS: Lupus dRVVT Screen 34 sec (<=45); PTT-LA Screen 31 sec (<=40)
[2023-05-11 11:28] LABS: NIL 0.07 IU/mL; Quantiferon TB Plus, 1T NEGATIVE (NEGATIVE); TB1-NIL <0.00 IU/mL; TB2-NIL <0.00 IU/mL
[2023-05-11 14:30] LABS: HLA B27 Negative (Negative)
[2023-05-11 21:35] LABS: Anti Cyclic Citrullinated Pept <16 Units (<20)
== END 2023-05-07 10:54 | disposition home or self-care (01) ==
PROVIDERS: PCP Internal Medicine; Referring Provider Internal Medicine; Visit Provider Internal Medicine Endocrinology, Diabetes & Metabolism
DX: M46.1 Sacroiliitis, not elsewhere classified (principal); R53.82 Chronic fatigue, unspecified; M19.90 Unspecified osteoarthritis, unspecified site; E61.1 Iron deficiency; E03.9 Hypothyroidism, unspecified; E55.9 Vitamin D deficiency, unspecified; R74.8 Abnormal levels of other serum enzymes
CPT/HCPCS: 36415; 72202; 80053; 82306; 84439; 84443; 84466; 85025; 85055; 85613; 85652; 85730; 86140; 86160; 86200; 86480; 86812

== ENCOUNTER → 2023-06-10 10:19 | Outpatient (CLI) | payer OTHER, SELFPAY ==
--- NOTE | ~2023-06-10 | MM_ITS ---
EXAMINATION: MM screening go BI w joselito HISTORY: Screening mammogram TECHNIQUE: Craniocaudal and mediolateral oblique 3-D tomosynthesis images were obtained and synthetic 2-D images were generated. CAD analysis was submitted and interpreted. COMPARISON: 09/17/2017 bilateral screening mammogram BREAST PARENCHYMAL COMPOSITION: The breasts are extremely dense, which lowers the sensitivity of mamm ography. FINDINGS: There is no evidence of suspicious mass, calcification, or architectural distortion to sugg est malignancy in either breast. There has been no suspicious interval change. IMPRESSION: 1. No mammographic evidence of malignancy. 2. Recommend routine screening mammography in one year. BI-RADS Category 1: Negative Reviewed, dictated and finalized at location A.
== END ==
PROVIDERS: PCP Internal Medicine; Visit Provider Obstetrics & Gynecology
DX: Z12.31 Encounter for screening mammogram for malignant neoplasm of breast (principal)
CPT/HCPCS: 77063; 77067

== ENCOUNTER 2023-06-16 10:25 | Outpatient (CLI) | payer OTHER, SELFPAY ==
--- NOTE | ~2023-06-16 | MR_ITS ---
EXAMINATION: MR sacroiliac jts wo/w con DATE: 06/16/2023 11:34 INDICATION: Sacroiliitis, not elsewhere specified. Low back pain. Bilateral hip pain. Positive ARASH. TECHNIQUE: Magnetic resonance imaging (MRI) of the sacroiliac joints was performed without and with 1 3 mL MultiHance intravenous contrast. COMPARISON: Sacrococcygeal joint radiographs 05/07/23, lumbar spine CT 03/12/2019 FINDINGS: Bone alignment is normal. No fracture. There is mild lumbar spondylosis. There is moderate osteoarthritis of the sacroiliac joints characterized by nonuniform joint space narrowing, osteophyte s, and mild right-sided subchondral edema-like marrow signal intensity. IMPRESSION: 1. Moderate osteoarthritis of the sacrococcygeal joints. No evidence of inflammatory arthropathy. Reviewed, dictated and finalized at location E. IMPRESSION: 1. Moderate osteoarthritis of the sacrococcygeal joints. No evidence of inflamm atory arthropathy.
== END 2023-06-16 10:26 | disposition home or self-care (01) ==
PROVIDERS: PCP Internal Medicine; Visit Provider Internal Medicine
DX: M47.898 Other spondylosis, sacral and sacrococcygeal region (principal); R53.82 Chronic fatigue, unspecified; M46.1 Sacroiliitis, not elsewhere classified
CPT/HCPCS: 72197; A9577

== ENCOUNTER 2023-12-05 13:11 | Outpatient (CLI) | payer OTHER, SELFPAY ==
[2023-12-05 13:57] LABS: Alanine Aminotransferase 71 U/L (6-35); Albumin Level 4.4 g/dL (3.5-5.1); Alkaline Phosphatase 141 U/L (38-126); Anion Gap 7 mmol/L (4-12); Aspartate Amino Transferase 63 U/L (14-36); Bilirubin,Total 0.4 mg/dL (0.2-1.3); Blood Urea Nitrogen 16 mg/dL (7-17); Calcium 9.2 mg/dL (8.4-10.2); Carbon Dioxide 23 mmol/L (22-30); Chloride 109 mmol/L (98-107); Estimated Glomerular Filt Rate > 60; Glucose 100 mg/dL (65-110); Sodium 139 mmol/L (137-145)
[2023-12-05 14:23] LABS: Thyroid Stimulating Hormone 0.936 uIU/mL (0.465-4.680)
[2023-12-05 14:45] LABS: Free T4 Free Thyroxine 1.17 ng/mL (0.78-2.19)
[2023-12-06 19:09] LABS: Lupus dRVVT Screen 38 sec (< OR = 45); PTT-LA Screen 34 sec (< OR = 40)
[2023-12-09 14:14] LABS: SM Antibody <1.0 NEG AI (<1.0 NEG); SM/RNP Antibody <1.0 NEG AI (<1.0 NEG); SS-A <1.0 NEG AI (<1.0 NEG); SS-B <1.0 NEG AI (<1.0 NEG)
== END 2023-12-05 13:12 | disposition home or self-care (01) ==
PROVIDERS: PCP Internal Medicine; Referring Provider Internal Medicine Endocrinology, Diabetes & Metabolism; Visit Provider Internal Medicine
DX: R76.8 Other specified abnormal immunological findings in serum (principal); E04.9 Nontoxic goiter, unspecified; E03.9 Hypothyroidism, unspecified
CPT/HCPCS: 36415; 80053; 84439; 84443; 85613; 85730; 86225; 86235

== ENCOUNTER 2024-09-01 09:25 | Outpatient (CLI) | payer OTHER, SELFPAY ==
[2024-09-01 09:51] LABS: Basophils Percent Auto 0.3 % (0.2-1.2); Eosinophils Absolute Auto 0.1 K/mm3 (0-0.3); Eosinophils Percent Auto 1.8 % (0-4.4); Hematocrit 39.7 % (37.0-47.0); Immature Granulocyte Absolute 0.02 K/mm3 (0.00-0.031); Immature Granulocyte Percent A 0.3 % (0-0.5); Lymphocytes Absolute Auto 1.86 K/mm3 (0.9-3.2); Lymphocytes Percent Auto 30.3 % (18.3-44.2); Mean Corpuscular HGB Conc 32.7 g/dl (32-36); Mean Corpuscular Hemoglobin 29.7 pg (26-34); Mean Corpuscular Volume 90.6 fl (80-100); Monocytes Absolute Auto 0.2 K/mm3 (0.1-0.6); Monocytes Percent Auto 2.4 % (2.6-8.5); Neutrophils Percent Auto 64.9 % (45.5-73.1); Platelet Count Result 182 k/mm3 (150-375); Red Blood Count 4.38 M/mm3 (4.2-5.4); Red Cell Distribution Width 13.4 % (11.5-14.5); White Blood Count 6.1 K/mm3 (4.5-10.0)
[2024-09-01 10:59] LABS: Free T4 Free Thyroxine 1.29 ng/dL (0.78-2.19)
[2024-09-01 11:02] LABS: Alanine Aminotransferase 29 U/L (6-35); Albumin Level 4.1 g/dL (3.5-5.1); Alkaline Phosphatase 101 U/L (38-126); Anion Gap 6 mmol/L (4-12); Aspartate Amino Transferase 28 U/L (14-36); Bilirubin,Total 0.6 mg/dL (0.2-1.3); Blood Urea Nitrogen 13 mg/dL (7-17); Calcium 8.9 mg/dL (8.4-10.2); Carbon Dioxide 29 mmol/L (22-30); Chloride 104 mmol/L (98-107); Cholesterol 208 mg/dL (0-200); Estimated Glomerular Filt Rate > 60; Glucose 94 mg/dL (65-110); HDL Direct 68 mg/dL; Potassium 3.8 mmol/L (3.4-5.0); Sodium 139 mmol/L (137-145); Triglycerides 116 mg/dL (<150)
[2024-09-01 11:13] LABS: LDL Cholesterol Direct 90 mg/dL
[2024-09-01 11:33] LABS: Thyroid Stimulating Hormone 0.285 uIU/mL (0.465-4.680)
[2024-09-02 03:28] LABS: Triiodothyronine T3 Free 3.1 pg/mL (2.3-4.2)
== END 2024-09-01 09:26 | disposition home or self-care (01) ==
PROVIDERS: PCP Internal Medicine; Visit Provider Internal Medicine
DX: Z13.220 Encounter for screening for lipoid disorders (principal); R53.83 Other fatigue; E03.9 Hypothyroidism, unspecified; R94.5 Abnormal results of liver function studies
CPT/HCPCS: 36415; 80053; 80061; 84439; 84443; 84481; 85025

== ENCOUNTER 2024-10-03 10:25 | Outpatient (CLI) | payer OTHER, SELFPAY ==
[2024-10-03 10:54] LABS: Basophils Percent Auto 0.3 % (0.2-1.2); Eosinophils Absolute Auto 0.2 K/mm3 (0-0.3); Eosinophils Percent Auto 2.9 % (0-4.4); Hematocrit 39.2 % (37.0-47.0); Immature Granulocyte Absolute 0.02 K/mm3 (0.00-0.031); Immature Granulocyte Percent A 0.3 % (0-0.5); Lymphocytes Absolute Auto 1.66 K/mm3 (0.9-3.2); Lymphocytes Percent Auto 28.2 % (18.3-44.2); Mean Corpuscular HGB Conc 33.2 g/dl (32-36); Mean Corpuscular Hemoglobin 29.9 pg (26-34); Mean Corpuscular Volume 90.1 fl (80-100); Mean Platelet Volume 11.5 fl (7.4-10.4); Monocytes Absolute Auto 0.1 K/mm3 (0.1-0.6); Monocytes Percent Auto 2.4 % (2.6-8.5); Neutrophils Absolute Auto 3.9 K/mm3 (1.3-6.7); Neutrophils Percent Auto 65.9 % (45.5-73.1); Platelet Count Result 173 k/mm3 (150-375); Red Blood Count 4.35 M/mm3 (4.2-5.4); Red Cell Distribution Width 13.3 % (11.5-14.5); White Blood Count 5.9 K/mm3 (4.5-10.0)
[2024-10-03 11:00] LABS: Add Urine Microscopic? YES; Appearance Urine Clear (Clear); Bacteria Urine None Seen /hpf; Bilirubin Urine Negative (Negative); Blood Urine 1+ (Negative); Color Urine Yellow (Yellow); Glucose Urine UA Negative (Negative); Ketones Urine Negative (Negative); Leukocyte Esterase Ur 1+ LEU/UL (Negative); Nitrate Urine Negative (Negative); Non Pathogenic Casts 0-2; Protein Urine Negative (Negative); RBC Urine 0-2 /hpf (0-2); Squamous Epithelial Cell Urine Occasional /hpf (Few); Urobilinogen Urine 0.2 mg/dL (<2.0)
[2024-10-03 11:24] LABS: Alanine Aminotransferase 45 U/L (6-35); Alkaline Phosphatase 105 U/L (38-126); Anion Gap 6 mmol/L (4-12); Aspartate Amino Transferase 43 U/L (14-36); Bilirubin,Total 0.5 mg/dL (0.2-1.3); Blood Urea Nitrogen 15 mg/dL (7-17); CRP 0.7 mg/dL (<1.0); Calcium 8.9 mg/dL (8.4-10.2); Carbon Dioxide 28 mmol/L (22-30); Chloride 106 mmol/L (98-107); Estimated Glomerular Filt Rate > 60; Glucose 92 mg/dL (65-110); Phosphorus 4.1 mg/dL (2.5-4.5); Sodium 140 mmol/L (137-145)
[2024-10-03 11:30] LABS: Iron 79 ug/dL (37-170)
[2024-10-03 11:39] LABS: Percent Iron Saturation 25 % (20-50)
[2024-10-03 11:46] LABS: Vitamin D 25 Hydroxy 52.6 ng/mL
[2024-10-03 11:49] LABS: Free T4 Free Thyroxine 0.89 ng/dL (0.78-2.19)
[2024-10-03 11:56] LABS: Erythrocyte Sedimentation Rate 21 mm/hr (0-20)
== END 2024-10-03 10:26 | disposition home or self-care (01) ==
PROVIDERS: PCP Internal Medicine; Referring Provider Internal Medicine; Visit Provider Internal Medicine Endocrinology, Diabetes & Metabolism
DX: D50.9 Iron deficiency anemia, unspecified (principal); E03.9 Hypothyroidism, unspecified; E53.8 Deficiency of other specified B group vitamins; R79.89 Other specified abnormal findings of blood chemistry; E55.9 Vitamin D deficiency, unspecified; M35.9 Systemic involvement of connective tissue, unspecified
CPT/HCPCS: 36415; 80053; 81001; 82306; 82607; 82728; 83540; 83550; 84100; 84439; 84443; 85025; 85652; 86140

== ENCOUNTER 2024-10-06 12:32 | Outpatient (CLI) | payer OTHER, SELFPAY ==
--- NOTE | ~2024-10-06 | XR_ITS ---
EXAMINATION: XR hand LT 2V, XR hand RT 2V DATE: 10/06/2024 13:30 INDICATION: Joint pain at the bilateral hands TECHNIQUE: 1. Posteroanterior and lateral views of the left hand were obtained. 2. Posteroanterior and lateral views of the right hand were obtained. COMPARISON: None. FINDINGS: Normal alignment at the bilateral hands. No fractures. Mild osteoarthritis at the left first metacarp ophalangeal and multiple bilateral interphalangeal joints with distal predominance. No erosions to ely ggest inflammatory arthritis. Soft tissues are unremarkable. IMPRESSION: 1. Typical pattern of mild polyarticular osteoarthritis at the bilateral hands. Reviewed, dictated and finalized at location A. D MANAGER IMPRESSION: 1. Typical pattern of mild polyarticular osteoarthritis at the bilateral hands.
--- NOTE | ~2024-10-06 | XR_ITS ---
EXAM: XR cervical spine 4-5V DATE: 10/06/2024 13:30 HISTORY: pain in other specified joint . COMPARISON: CT C-spine 03/18/2018. FINDINGS: Craniocervical association and atlantoaxial joint are aligned. No prevertebral soft tissue swelling. 2 mm anterolisthesis at C4-5. Vertebral body heights are maintained. Mild disc space narro wing and marginal osteophytosis at C5-6. Normal facets and posterior elements. IMPRESSION: Grade 1 anterolisthesis at C4-5. Mild cervical degenerative disc disease at C5-6. Reviewed, dictated and finalized at location K. MACY INFORMATICIST IMPRESSION: Grade 1 anterolisthesis at C4-5. Mild cervical degenerative disc di sease at C5-6.
--- NOTE | ~2024-10-06 | XR_ITS ---
EXAMINATION: XR foot RT 2V, XR foot LT 2V DATE: 10/06/2024 13:30 INDICATION: Joint pain in the bilateral feet TECHNIQUE: 1. Dorsoplantar and lateral views of the left foot were obtained. 2. Dorsoplantar, oblique and lateral views of the right foot were obtained. COMPARISON: None. FINDINGS: Normal alignment at the bilateral feet. No fracture. Joint spaces appear relatively preserved through out the bilateral feet. No cortical erosions or periosteal reaction. Soft tissues are unremarkable. IMPRESSION: 1. Negative bilateral feet radiographs. Reviewed, dictated and finalized at location A. O COMPUTER DATA PROCESSOR IMPRESSION: 1. Negative bilateral feet radiographs.
== END 2024-10-06 12:33 | disposition home or self-care (01) ==
PROVIDERS: PCP Internal Medicine; Visit Provider Internal Medicine
DX: M43.12 Spondylolisthesis, cervical region (principal); M50.322 Other cervical disc degeneration at C5-C6 level; M25.572 Pain in left ankle and joints of left foot; M19.042 Primary osteoarthritis, left hand; M19.041 Primary osteoarthritis, right hand; M35.9 Systemic involvement of connective tissue, unspecified
CPT/HCPCS: 72050; 73120; 73620

== ENCOUNTER 2025-03-24 12:35 | Outpatient (CLI) | payer OTHER, SELFPAY ==
[2025-03-24 13:39] LABS: Iron 103 ug/dL (37-170)
[2025-03-24 13:40] LABS: Alanine Aminotransferase 38 U/L (6-35); Albumin Level 4.2 g/dL (3.5-5.1); Alkaline Phosphatase 110 U/L (38-126); Anion Gap 6 mmol/L (4-12); Aspartate Amino Transferase 42 U/L (14-36); Bilirubin,Total 0.5 mg/dL (0.2-1.3); Blood Urea Nitrogen 12 mg/dL (7-17); Calcium 9.2 mg/dL (8.4-10.2); Carbon Dioxide 28 mmol/L (22-30); Chloride 102 mmol/L (98-107); Estimated Glomerular Filt Rate > 60; Glucose 87 mg/dL (65-110); Sodium 136 mmol/L (137-145); Total Protein 7.5 g/dL (6.3-8.2)
[2025-03-24 13:49] LABS: Percent Iron Saturation 30 % (20-50); Potassium 4.2 mmol/L (3.4-5.0)
[2025-03-24 13:58] LABS: Free T4 Free Thyroxine 1.13 ng/dL (0.78-2.19)
[2025-03-24 14:15] LABS: Thyroid Stimulating Hormone 1.680 uIU/mL (0.465-4.680)
[2025-03-24 14:21] LABS: Ferritin 38.10 ng/mL (11.1-264)
[2025-03-24 14:34] LABS: Vitamin B12 889.0 pg/mL (239-931)
[2025-03-24 15:28] LABS: Hemoglobin A1C 5.6 % (<5.7)
== END 2025-03-24 12:36 | disposition home or self-care (01) ==
PROVIDERS: PCP Internal Medicine; Visit Provider Internal Medicine Endocrinology, Diabetes & Metabolism
DX: Z13.1 Encounter for screening for diabetes mellitus (principal); E53.8 Deficiency of other specified B group vitamins; E03.9 Hypothyroidism, unspecified; E55.9 Vitamin D deficiency, unspecified; R74.8 Abnormal levels of other serum enzymes; Z83.3 Family history of diabetes mellitus
CPT/HCPCS: 36415; 80053; 82306; 82607; 82728; 83036; 83540; 83550; 84439; 84443

== ENCOUNTER 2025-04-13 12:12 | Outpatient (CLI) | payer OTHER, SELFPAY ==
[2025-04-14 07:09] LABS: FSH 84.5 mIU/mL (.)
[2025-04-16 07:09] LABS: Estrogens, Total 35 pg/mL (.)
== END 2025-04-13 12:13 | disposition home or self-care (01) ==
PROVIDERS: PCP Internal Medicine; Visit Provider Obstetrics & Gynecology
DX: N95.1 Menopausal and female climacteric states (principal)
CPT/HCPCS: 82672; 83001; 84144

== ENCOUNTER 2025-05-20 10:25 | Outpatient (CLI) | payer OTHER, SELFPAY ==
--- NOTE | ~2025-05-20 | US_ITS ---
Clinical history:Intra-abdominal and pelvic swelling EXAM:Pelvis complete with transvaginal TECHNIQUE:Static grayscale images and color Doppler transabdominal and transvaginal images of the pelvis were obtained Comparisons:None available FINDINGS: Uterus measures 7.3 x 2.8 x 4.4 cm. Small nabothian cyst in the cervix. Uterus is heterogeneous. There is a 1.9 x 1.9 x 2.1 cm heterogeneous masslike structure about the endometrium/submucosal region of the body of the uterus. Endometrium was not visualized. Right ovary measures 1.7 x 0.9 x 2.0 cm with vascular flow. Left ovary measures 1.9 x 0.8 x 2.1 cm with vascular flow. The study is limited due to overlying bowel gas and stool. IMPRESSION: 1. There is a 1.9 x 1.9 x 2.1 cm heterogeneous masslike structure about the endometrium/submucosal region of the body of the uterus. The finding may represent a submucosal uterine fibroid. Other etiologies are possible. Consider a pelvic MRI for further assessment. Follow-up is recommended. 2. Endometrial stripe was not visualized. If symptoms persist or worsen, consider a short-term follow-up study or additional imaging for further assessment. Reviewed, dictated and finalized at location Q. IMPRESSION: 1. There is a 1.9 x 1.9 x 2.1 cm heterogeneous masslike structure about the end ometrium/submucosal region of the body of the uterus. The finding may represent a submucosal uterine fibroid. Other etiologies are possible. Consider a pelvic MRI for further assessment. Follow-up is recommended. 2. Endometrial stripe was not visualized. If symptoms persist or worsen, consider a short-term follow-up study or additio nal imaging for further assessment.
== END 2025-05-20 10:26 | disposition home or self-care (01) ==
PROVIDERS: PCP Internal Medicine; Visit Provider Obstetrics & Gynecology
DX: D25.0 Submucous leiomyoma of uterus (principal); R19.00 Intra-abdominal and pelvic swelling, mass and lump, unspecified site
CPT/HCPCS: 76830; 76856